=== PATIENT | female | born 1985 | race Hispanic/Latino ===

== ENCOUNTER 2018-06-22 04:02 | Emergency (ER) | payer SELFPAY ==
--- NOTE | 2018-06-22 05:10 | ER ---
Nurse's Notes [facility] Name: Maria Esther Myles Age: 33 yrs Sex: Female : 1985 Arrival Date: 06/22/2018 Time: 04:03 Bed 6 Private MD: Diagnosis: Left arm pain Presentation: 06/22 04:17 Presenting complaint: Patient states: Pt reports pain in left arm since 1200 yesterday. tl2 Pt states pain radiates from shoulder all the way down to her hand and that it sometimes feels like it has fallen asleep or has a "shocking pain". Denies pain or numbness in right arm or legs. Transition of care: patient was not received from another setting of care. Onset of symptoms was June 21, 2018 at 12:00. Risk Assessment: Do you want to hurt yourself or someone else? Patient reports no desire to harm self or others. Initial Sepsis Screen: Does the patient meet any 2 criteria? No. Patient's initial sepsis screen is negative. Does the patient have a suspected source of infection? No. Patient's initial sepsis screen is negative. Care prior to arrival: None. 04:17 Method Of Arrival: Ambulatory tl2 04:17 Acuity: ANDREA 4 tl2 Triage Assessment: 04:19 General: Appears in no apparent distress. uncomfortable, Behavior is calm, cooperative, tl2 appropriate for age. Pain: Complains of pain in left arm Pain radiates to left hand Pain currently is 5 out of 10 on a pain scale. Quality of pain is described as tingling. Neuro: Level of Consciousness is awake, alert, obeys commands, Oriented to person, place, time, situation. Neuro: Moves all extremities. Speech is normal, Facial symmetry appears normal. Cardiovascular: Denies chest pain. Respiratory: Airway is patent Respiratory effort is even, unlabored, Respiratory pattern is regular, symmetrical. GI: No signs and/or symptoms were reported involving the gastrointestinal system. : No signs and/or symptoms were reported regarding the genitourinary system. Derm: Skin is pink, warm \\T\\ dry. Historical: - Allergies: 04:19 No Known Allergies; tl2 - Home Meds: 04:19 None [Active]; tl2 - PMHx: 04:19 None; tl2 - Immunization history:: Adult Immunizations up to date. - Social history:: Smoking status: Patient/guardian denies using tobacco. - Ebola Screening: : No symptoms or risks identified at this time. Screenin:21 Abuse screen: Denies threats or abuse. Nutritional screening: No deficits noted. tl2 Tuberculosis screening: No symptoms or risk factors identified. Fall Risk None identified. Assessment: 04:39 General: see triage assessment. tl2 Vital Signs: 04:19 BP 135 / 92; Pulse 66; Resp 18; Temp 98.4(O); Pulse Ox 98% on R/A; Weight 83.91 kg; tl2 Height 5 ft. 3 in. (160.02 cm); Pain 5/10; 04:19 Body Mass Index 32.77 (83.91 kg, 160.02 cm) tl2 ED Course: 04:03 Patient arrived in ED. ds1 04:19 Triage completed. tl2 04:19 Arm band placed on right wrist. tl2 04:21 Patient has correct armband on for positive identification. Bed in low position. Call tl2 light in reach. Side rails up X 1. Adult w/ patient. 04:38 Herve Lundberg MD is Attending Physician. tw4 04:46 No provider procedures requiring assistance completed. Patient did not have IV access tl2 during this emergency room visit. 04:49 Desiree Singh RN is Primary Nurse. tl2 Administered Medications: No medications were administered Outcome: 04:39 Medical screen evaluation completed per provider. Patient declined treatment. tl2 04:39 Condition: stable 04:39 Discharge instructions given to patient, Instructed on follow up and referral plans. 05:09 Discharge ordered by . tw4 05:11 Patient left the ED. tl2 Signatures: Justine Bajwa ds1 Desiree Singh, SARA RN tl2 Herve Lundberg MD MD tw4
--- NOTE | 2018-06-22 05:10 | EDPHYS ---
Physician Documentation [facility] Name: Maria Esther Myles Age: 33 yrs Sex: Female : 1985 Arrival Date: 06/22/2018 Time: 04:03 Bed 6 Private MD: ED Physician Herve Lundberg HPI: 06/22 05:06 This 33 yrs old Female presents to ER via Ambulatory with complaints of Arm tw4 Pain. 05:06 The patient or guardian complains of injury. The complaints affect the left bicep and tw4 dorsal aspect of left forearm. Context: The problem was sustained at home, resulted from a chronic condition. Onset: The symptoms/episode began/occurred today. Treatment prior to arrival includes: no previous treatment. Modifying factors: The symptoms are alleviated by nothing. the symptoms are aggravated by nothing. Associated signs and symptoms: The patient has no apparent associated signs or symptoms. Severity of symptoms: At their worst the symptoms were moderate, in the emergency department the symptoms. Historical: - Allergies: 04:19 No Known Allergies; tl2 - Home Meds: 04:19 None [Active]; tl2 - PMHx: 04:19 None; tl2 - Immunization history:: Adult Immunizations up to date. - Social history:: Smoking status: Patient/guardian denies using tobacco. - Ebola Screening: : No symptoms or risks identified at this time. ROS: 05:06 Constitutional: Negative for fever, chills, and weight loss, Eyes: Negative for injury, tw4 pain, redness, and discharge, Cardiovascular: Negative for chest pain, palpitations, and edema, Respiratory: Negative for shortness of breath, cough, wheezing, and pleuritic chest pain, Abdomen/GI: Negative for abdominal pain, nausea, vomiting, diarrhea, and constipation, Back: Negative for injury and pain. 05:06 MS/extremity: Positive for pain. Exam: 05:06 Constitutional: This is a well developed, well nourished patient who is awake, alert, tw4 and in no acute distress. Head/Face: Normocephalic, atraumatic. Chest/axilla: Normal chest wall appearance and motion. Nontender with no deformity. No lesions are appreciated. Cardiovascular: Regular rate and rhythm with a normal S1 and S2. No gallops, murmurs, or rubs. Normal PMI, no JVD. No pulse deficits. Respiratory: Lungs have equal breath sounds bilaterally, clear to auscultation and percussion. No rales, rhonchi or wheezes noted. No increased work of breathing, no retractions or nasal flaring. Abdomen/GI: Soft, non-tender, with normal bowel sounds. No distension or tympany. No guarding or rebound. No evidence of tenderness throughout. Back: No spinal tenderness. No costovertebral tenderness. Full range of motion. MS/ Extremity: Pulses equal, no cyanosis. Neurovascular intact. Full, normal range of motion. Neuro: Awake and alert, GCS 15, oriented to person, place, time, and situation. Cranial nerves II-XII grossly intact. Motor strength 5/5 in all extremities. Sensory grossly intact. Cerebellar exam normal. Normal gait. Vital Signs: 04:19 BP 135 / 92; Pulse 66; Resp 18; Temp 98.4(O); Pulse Ox 98% on R/A; Weight 83.91 kg; tl2 Height 5 ft. 3 in. (160.02 cm); Pain 5/10; 04:19 Body Mass Index 32.77 (83.91 kg, 160.02 cm) tl2 MDM: 04:38 Patient medically screened. tw4 05:06 Data reviewed: vital signs, nurses notes. Counseling: I had a detailed discussion with [facility] the patient and/or guardian regarding: the historical points, exam findings, and any diagnostic results supporting the discharge/admit diagnosis. Medical screen evaluation completed. EMTALA emergency medical condition absent. Administered Medications: No medications were administered Disposition: 05:08 [facility] [place]. 4 Disposition: 06/22/18 05:09 Discharged to Home. Impression: Left arm pain. - Condition is Stable. - Medication Reconciliation Form, Thank You Letter, Antibiotic Education, Prescription Opioid Use form. - Follow up: Private Physician; When: Today; Reason: Recheck today's complaints, Re-evaluation by your physician. - Problem is new. - Symptoms are unchanged. Signatures: Desiree Singh RN RN 2 Herve Lundberg MD MD 4 Corrections: (The following items were deleted from the chart) 05:11 05:09 06/22/2018 05:09 Discharged to Home. Impression: Left arm pain. Condition is tl2 Stable. Forms are Medication Reconciliation Form, Thank You Letter, Antibiotic Education, Prescription Opioid Use. Follow up: Private Physician; When: Today; Reason: Recheck today's complaints, Re-evaluation by your physician. Problem is new. Symptoms are unchanged. tw4
== END 2018-06-22 05:11 | disposition home or self-care (01) ==
LOC: ER 04:02
DX: M79.602 Pain in left arm (principal)
CPT/HCPCS: 99281